=== PATIENT | male | born 1970 | race Two or more races ===

== ENCOUNTER 2019-02-12 09:16 | Emergency (ER) | payer OTHER ==
[2019-02-12 09:24] VITALS: BP 133/77; PULSE 57; TEMP 98.4; BMI 25.1
--- NOTE | 2019-02-12 10:03 | PDOC ---
History of Present Illness - General Chief Complaint: Rash Stated Complaint: GROIN PAIN/FEVER/RASH Time Seen by Provider: 02/12/19 09:47 History Source: Patient - History of Present Illness Timing/Duration: reports: yesterday Location: reports: extremities Past History - Past Medical History Allergies/Adverse Reactions: Allergies Allergy/AdvReac Type Severity Reaction Status Date / Time No Known Allergies Allergy Verified 02/12/19 09:20 Home Medications: Ambulatory Orders Valacyclovir HCl [Valtrex] 1,000 mg PO TID #21 tablet 02/12/19 - Psycho Social/Smoking Cessation Hx Smoking History: Never smoked Review of Systems - Review of Systems Constitutional: No: Chills, Fever Integumentary: Yes: Pruritus, Rash *Physical Exam - Vital Signs Last Vital Signs Temp Pulse Resp BP Pulse Ox 98.4 F 57 L 14 133/77 99 02/12/19 09:22 02/12/19 09:22 02/12/19 09:22 02/12/19 09:22 02/12/19 09:22 - Physical Exam General Appearance: Yes: Appropriately Dressed. No: Apparent Distress HEENT: positive: Normal Voice Neck: positive: Supple Respiratory/Chest: negative: Respiratory Distress Lymphatic: negative: Adenopathy Extremity: positive: Other Integumentary: positive: Dry, Warm, Rash (vesicles to lateral aspect of R hip, medial R thigh and medial R leg, following L3 dermatome) Neurologic: positive: Fully Oriented, Alert, Normal Mood/Affect Medical Decision Making - Medical Decision Making 02/12/19 09:57 48-year-old male, denies any past medical history, here with rash to RLE that is both painful and pruritic since yesterday. Also complaining of some right groin pain. No obvious inciting factors and no f/c See exam Shingles to RLE Vesicular lesions following L3 dermatome on exam -Dc w/ valtrex, OTC meds prn pain -contact precautions given -To return as needed Discharge - Discharge Information Problems reviewed: Yes Clinical Impression/Diagnosis: Shingles Qualifiers: Herpes zoster complications: without complications Qualified Code(s): B02.9 - Zoster without complications Condition: Good Disposition: HOME - Additional Discharge Information Prescriptions: Valacyclovir HCl [Valtrex] 1,000 mg PO TID #21 tablet - Follow up/Referral - Patient Discharge Instructions Patient Printed Discharge Instructions: Shingles Additional Instructions: You have a condition called shingles which is a reactivation of the virus that causes chickenpox You are contagious to people who have never had chickenpox, children were not immunized, the elderly and immunocompromised and women Take medication as directed. Once lesions have crusted over, you you are no longer contagious - Post Discharge Activity Work/Back to School Note: Back to Work
== END 2019-02-12 10:06 | disposition home or self-care (01) ==
LOC: JERFT 09:16
DX: B02.9 Zoster without complications (principal)
CPT/HCPCS: 99281-25

== ENCOUNTER 2020-09-24 08:34 | Emergency (ER) | payer OTHER ==
[2020-09-24 09:04] VITALS: BP 142/67; PULSE 60; TEMP 98.1; BMI 25.6
[2020-09-24] MEDS ORDERED: IBUPROFEN 600 MG TABLET (FP) PO ONE ×2 (09:46→09:54)
== END 2020-09-24 10:15 | disposition home or self-care (01) ==
LOC: JER 08:34
PROC: 2W3QX1Z Immobilization of Right Lower Leg using Splint (ICD-10-PCS; principal; 2020-09-24)
DX: S82.831A Other fracture of upper and lower end of right fibula, initial encounter for closed fracture (principal)
CPT/HCPCS: 73610-TC-RT-FY; 73630-TC-RT-FY; 99284-25

== ENCOUNTER 2020-09-30 18:22 | Emergency (ER) | payer OTHER ==
[2020-09-30 18:40] VITALS: BP 145/91; PULSE 61; TEMP 98.1; BMI 27.4
== END 2020-09-30 18:54 | disposition home or self-care (01) ==
LOC: FER 18:22
DX: B35.3 Tinea pedis (principal)
CPT/HCPCS: 99281-25

== ENCOUNTER 2021-04-03 12:20 | Emergency (ER) | payer OTHER ==
[2021-04-03 12:36] VITALS: BP 114/90; PULSE 66; TEMP 97.1; BMI 27.4
[2021-04-03] MEDS ORDERED: IBUPROFEN 600 MG TABLET (FP) PO ONE ×2 (13:23→13:27)
[2021-04-04 19:06] LABS: SARS-CoV-2 NAA Detected (Not Detected)
== END 2021-04-03 13:47 | disposition home or self-care (01) ==
LOC: JER 12:20
DX: R51.9 Headache, unspecified (principal)
CPT/HCPCS: 87804; 99283-25; C9803; U0003; U0005

== ENCOUNTER 2021-11-12 19:12 | Emergency (ER) | payer OTHER ==
[2021-11-12 19:22] VITALS: BP 139/79; PULSE 73; RESP 18; TEMP 98.8; BMI 26.6
== END 2021-11-12 20:32 | disposition home or self-care (01) ==
LOC: JERFT 19:12
DX: S96.912A Strain of unspecified muscle and tendon at ankle and foot level, left foot, initial encounter (principal)
CPT/HCPCS: 73610-TC-LT-FY; 73630-TC-LT; 99284-25